=== PATIENT | female | born 1960 | race Caucasian/White ===

== ENCOUNTER 2020-09-06 19:54 | Emergency (ER) | payer BC ==
[~2020-09-06] VITALS: Ht 165.1 cm; Wt 81.7 kg
[2020-09-06] MEDS ORDERED: AUGMENTIN 875-1 EACH PO (22:42)
[2020-09-06 23:10] VITALS: BP 132/72
== END 2020-09-06 23:07 | disposition home or self-care (01) ==
LOC: ER 19:54
DX: R22.0 Localized swelling, mass and lump, head (principal); M26.609 Unspecified temporomandibular joint disorder, unspecified side; K11.8 Other diseases of salivary glands; Z88.7 Allergy status to serum and vaccine